=== PATIENT | male | born 1960 | race Caucasian/White ===

== ENCOUNTER → 2017-06-30 | Outpatient (CLI) | payer BC ==
--- NOTE | 2017-06-30 09:20 | RAD ---
Left knee radiograph 06/30/2017 at 0856 hours Indication: Left knee pain with history of gout. Comparison: None available Technique: 3 views of the left knee are provided. Findings: There is no acute fracture or dislocation. Bone mineralization is within normal limits. There is no significant knee joint effusion. Joint spaces are maintained. Mild patellar enthesopathy noted at the insertion of the quadriceps tendon. Impression: No acute fracture or dislocation.
== END | disposition home or self-care (01) ==
LOC: DXRADRC 08:49
PROVIDERS: ATTEND Physician Assistant Medical
DX: M76.52 Patellar tendinitis, left knee (principal); Z87.898 Personal history of other specified conditions
CPT/HCPCS: 73562